=== PATIENT | male | born 1940 | race Hispanic/Latino ===

== ENCOUNTER 2018-03-22 13:30 | Inpatient (IN) | payer MEDICARE ==
[~2018-03-22] VITALS: Ht 174 cm; Wt 75.8 kg
[2018-03-22 11:30] VITALS: BP 141/70
[2018-03-22 11:35] LABS: APPEARANCE,URINE Clear (CLEAR); BILIRUBIN,URINE Negative (NEGATIVE); COLOR,URINE Yellow (YELLOW); GLUCOSE, URINE (UA) Negative (NEGATIVE); KETONES,URINE Negative (NEGATIVE); LEUKOCYTE ESTERASE ,URINE Negative (NEGATIVE); NITRATE,URINE Negative (NEGATIVE); OCCULT BLOOD,URINE Trace (NEGATIVE); PH,URINE 5.5 (5.0-8.0); PROTEIN,URINE Negative (NEGATIVE)
[2018-03-22 11:39] LABS: PARTIAL THROMBOPLASTIN TIME 28.9 SEC (26.3-35.5); PROTHROMBIN TIME 10.5 SEC (9.6-11.6)
[2018-03-22 11:51] LABS: BACTERIA,URINE Rare /HPF (None Seen); RBC,URINE 0-1 /HPF (0-1); SQUAMOUS EPITHELIAL CELL,UR Rare /HPF (0-2); WBC,URINE None Seen /HPF (0-1)
[~2018-03-22 13:30] MED LIST: AMLO10TA7 PO; ASPI-1181 PO; METO100T14 PO; SIMV20TA6 PO
[2018-03-24] VITALS (21 sets, daily range): BP systolic 118–145; BP diastolic 58–82
[2018-03-24] MEDS ORDERED: LACTATED RINGERS 1000ML 1,000 ML IV ONE (07:49)
[2018-03-24] MEDS: CEFAZOLIN SODIUM 1 GM VIAL ONE ×2 (08:03→10:34)
--- NOTE | 2018-03-24 08:06 | NUR ---
VALUABLES: CLOTHING, MEDICATIONS, UPPER / LOWER COMPLETE DENTURES AND WALLET GIVEN TO .
[2018-03-24] MEDS ORDERED: CEFAZOLIN SODIUM 1 GM VIAL ONE (08:33)
[2018-03-24] MEDS ORDERED: BUPIVACAINE/PF 0.25% 50ML VIAL IJ ONE (08:33)
[2018-03-24] MEDS ORDERED: TRANEXAMIC ACID 1000MG/10ML IV ONE ×2 (08:33→13:28)
[2018-03-24] MEDS ORDERED: ACETAMINOPHEN EXTRA STRENGTH 500 MG TABLET ONE (08:43)
[2018-03-24] MEDS ORDERED: OXYCODONE HCL 10 MG TAB.SR.12H PO ONE (08:43)
[2018-03-24] MEDS ORDERED: LIDOCAINE PF 2% 5ML ABBOJECT ONE ×2 (10:04→12:26)
[2018-03-24] MEDS ORDERED: ONDANSETRON HCL 4 MG/2 ML VIAL ONE (10:05)
[2018-03-24] MEDS ORDERED: ROCURONIUM 10MG/1ML SYR 10 MG/ML ML ONE (10:05)
[2018-03-24] MEDS ORDERED: PROPOFOL 10 MG/ML 20ML VIAL IV ONE (10:05)
[2018-03-24] MEDS ORDERED: FENTANYL CITRATE PF 50 MCG/1 ML 2ML VIAL ONE (10:05)
[2018-03-24] MEDS ORDERED: DEXAMETHASONE SOD PHOSPHATE 10MG/ML 1ML VIAL ONE (10:11)
[2018-03-24] MEDS ORDERED: ROPIVACAINE 0.5% 5MG/ML 30ML IJ ONE (10:11)
[2018-03-24] MEDS ORDERED: BUPIVACAINE/EPI/PF 0.25% 50 ML VIAL ONE (10:11)
[2018-03-24] MEDS ORDERED: EPHEDRINE SULFATE 50 MG/ML AMPULE ONE (10:57)
[2018-03-24] MEDS ORDERED: CEFAZOLIN SODIUM 1 GM VIAL IRRIG ONE (11:11)
[2018-03-24] MEDS ORDERED: FERROUS FUMARATE 324 MG TABLET PO PRN (12:15)
[2018-03-24] MEDS ORDERED: POTASSIUM CHLORIDE 10% ELIXIR 20 MEQ/15 ML UDCUP PO PRN (12:15)
[2018-03-24] MEDS ORDERED: POTASSIUM CHLORIDE 20MEQ/100ML 100 ML IV PRN (12:15)
[2018-03-24] MEDS ORDERED: TEMAZEPAM 15 MG CAPSULE PO PRN (12:15)
[2018-03-24] MEDS ORDERED: TRAMADOL HCL 50 MG TABLET PO PRN (12:15)
[2018-03-24] MEDS ORDERED: DiphenhydrAMINE HCL 50 MG/ML VIAL IVP PRN (12:15)
[2018-03-24] MEDS: ACETAMINOPHEN EXTRA STRENGTH 500 MG TABLET PO SCH ×2 (12:15→21:00)
[2018-03-24] MEDS ORDERED: ONDANSETRON HCL 4 MG/2 ML VIAL IVP PRN (12:15)
[2018-03-24] MEDS ORDERED: LIDOCAINE HCL-MPF 1% 2ML VIAL IVP PRN (12:15)
[2018-03-24] MEDS ORDERED: POTASSIUM CHLORIDE 20 MEQ ERTAB PO PRN (12:15)
--- NOTE | 2018-03-24 14:07 | NUR ---
POST SURGERY PATIENT RECEIVED FROM PACU VIA HOSPITAL BED IN STABLE CONDITION. HE IS AWAKE, ALERT AND ORIENTED X3. DENIES PAIN AT THIS TIME. JOSSUE DRESSING TO LEFT KNEE WITH GREEN LIGHT FLASHING. ORIENTED TO ROOM AND USE OF CALL LIGHT. FAMILY IS DOWNSTAIRS IN THE LOBBY WAITING TO SPEAK TO THE SURGEON. POST OP VITAL SIGNS INITIATED. BED IS IN LOWEST POSITION AND LOCKED WITH PERSONAL BELONGINGS WITHIN REACH. WILL CONTINUE TO MONITOR.
[2018-03-24] MEDS: SODIUM CHLORIDE 0.9% 1000ML 1,000 ML IV SCH ×2 (14:24→22:07)
[2018-03-24] MEDS: CEFAZOLIN SODIUM 1 GM VIAL IVP SCH (16:50)
[2018-03-24] MEDS: OXYCODONE HCL 5 MG TAB PO PRN (20:58)
[2018-03-24] MEDS: FAMOTIDINE 20MG TAB 20 MG TAB PO SCH (21:00)
[2018-03-24] MEDS: ASPIRIN 325 MG TABLET PO SCH (21:00)
[2018-03-24] MEDS: SIMVASTATIN 20 MG TABLET PO SCH (21:01)
[2018-03-24] MEDS: PREGABALIN 25 MG CAP PO SCH (21:01)
[2018-03-24] MEDS: METOPROLOL TARTRATE 50 MG TAB PO SCH (21:01)
[2018-03-25 00:04] VITALS: BP 133/65
[2018-03-25] MEDS: CEFAZOLIN SODIUM 1 GM VIAL IVP SCH (00:59)
[2018-03-25] MEDS: OXYCODONE HCL 5 MG TAB PO PRN ×3 (04:05→19:35)
[2018-03-25] MEDS: ACETAMINOPHEN EXTRA STRENGTH 500 MG TABLET PO SCH ×3 (04:05→19:36)
[2018-03-25 04:48] LABS: HEMATOCRIT 33.3 % (42-54); MEAN CORPUSCULAR HEMOGLOBIN 29.8 pg (27.0-33.0); MEAN CORPUSCULAR HGB CONC 34.8 g/dL (32.0-36.0); MEAN CORPUSCULAR VOLUME 85.6 fL (79-99); PLATELET COUNT (AUTO) 203 K/uL (130-400); RED BLOOD CELL COUNT(AUTO) 3.89 MIL/uL (4.50-6.20); RED CELL DISTRIBUTION WIDTH 15.4 % (11.0-15.5); WHITE BLOOD COUNT (AUTO) 10.9 K/uL (4.8-10.8)
[2018-03-25 04:52] VITALS: BP 149/86
[2018-03-25 04:55] LABS: CREATININE 1.1 mg/dL (0.5-1.5); POTASSIUM 4.5 mmol/L (3.5-5.1)
[2018-03-25 08:11] VITALS: BP 144/72
[2018-03-25] MEDS: AMLODIPINE BESYLATE 5 MG TAB PO SCH (08:28)
[2018-03-25] MEDS: FAMOTIDINE 20MG TAB 20 MG TAB PO SCH ×2 (08:28→19:35)
[2018-03-25] MEDS: ASPIRIN 325 MG TABLET PO SCH ×2 (08:28→19:36)
[2018-03-25] MEDS: METOPROLOL TARTRATE 50 MG TAB PO SCH ×2 (08:29→19:35)
[2018-03-25] MEDS: PREGABALIN 25 MG CAP PO SCH ×2 (08:29→19:35)
[2018-03-25] MEDS: TAMSULOSIN HCL 0.4 MG CAP.ER.24H PO SCH (08:29)
[2018-03-25] MEDS: POLYETHYLENE GLYCOL 3350 17 GM POWD.PACK PO SCH (08:29)
--- NOTE | 2018-03-25 09:14 | NUR ---
DC Plan Discussed dcp w/ patient. States plan is to go to [facility]. Patient signed RADHIKA and Choice Letter. States one of his daughters will drive patient to [facility]. Referral faxed at 0900 w/ fax confirmation received. Notified Bentley gentile/ [facility] of referral. MOT and Med Rec placed in chart. CM to continue to follow. CD Addendum: 03/25/18 at 0917 by MANNY BRAVO CM Amended: Links added.
[2018-03-25] MEDS: CALCIUM CARBONATE 500 MG TABLET PO PRN ×2 (11:05→19:35)
[2018-03-25 11:53] VITALS: BP 121/68
[2018-03-25 16:00] VITALS: BP 127/62
[2018-03-25] MEDS: SIMVASTATIN 20 MG TABLET PO SCH (19:36)
[2018-03-25 20:00] VITALS: BP 137/77
[2018-03-26] VITALS: BP 124/60
[2018-03-26] MEDS: ACETAMINOPHEN EXTRA STRENGTH 500 MG TABLET PO SCH (03:59)
[2018-03-26 04:14] VITALS: BP 152/72
[2018-03-26 08:00] VITALS: BP 154/70
[2018-03-26] MEDS: POLYETHYLENE GLYCOL 3350 17 GM POWD.PACK PO SCH (08:34)
[2018-03-26] MEDS: TAMSULOSIN HCL 0.4 MG CAP.ER.24H PO SCH (08:35)
[2018-03-26] MEDS: OXYCODONE HCL 5 MG TAB PO PRN (08:35)
[2018-03-26] MEDS: ASPIRIN 325 MG TABLET PO SCH (08:35)
[2018-03-26] MEDS: FAMOTIDINE 20MG TAB 20 MG TAB PO SCH (08:35)
[2018-03-26] MEDS: PREGABALIN 25 MG CAP PO SCH (08:35)
[2018-03-26] MEDS: METOPROLOL TARTRATE 50 MG TAB PO SCH (08:36)
[2018-03-26] MEDS: AMLODIPINE BESYLATE 5 MG TAB PO SCH (08:36)
--- NOTE | 2018-03-26 09:27 | NUR ---
As per admission database, pt refuses flu shot. Addendum: 03/26/18 at 3734 by JUDIE MOSES RN RN Amended: Links added.
[2018-03-26 11:00] VITALS: BP 105/50
[2018-03-26 16:00] VITALS: BP 131/67
--- NOTE | 2018-03-26 19:00 | NUR ---
PT D/C FULL EDUCATION GIVEN USING TEACH BACK METHOD SATISFACTORILY IV REMOVED, CATHETER INTACT NO SIGNS OF DISTRESS NOTED PT DENIES SOB OR CHEST PAIN FULL REPORT GIVEN TO JESSY FROM [facility]
[2018-03-27] MEDS ORDERED: BISACODYL 10 MG SUPP.RECT RC PRN (12:15)
== END 2018-03-26 18:57 | DRG 470 ==
LOC: EDSTATUS 13:30 → DAHIP 03-24 07:03 → 4AH 03-24 13:02
PROVIDERS: ADMIT Orthopaedic Surgery; ATTEND Orthopaedic Surgery
PROC: 3E0T3BZ Introduction of Anesthetic Agent into Peripheral Nerves and Plexi, Percutaneous Approach (ICD-10-PCS; 2018-03-24)
PROC: 0SRD0J9 Replacement of Left Knee Joint with Synthetic Substitute, Cemented, Open Approach (ICD-10-PCS; principal; 2018-03-24 09:59)
DX: M17.12 Unilateral primary osteoarthritis, left knee (principal); G89.29 Other chronic pain; I10 Essential (primary) hypertension; Z90.5 Acquired absence of kidney
CPT/HCPCS: 36415; 80048; 81001; 85027; 85610; 85730; 88305; 88311; A4218; G0378; J0690; J1100; J2001; J2405; J2704; J2795; J3010; J3490; J7030; J7120

== ENCOUNTER → 2023-08-18 | Outpatient (CLI) | payer OTHER ==
[~2023-08-18] VITALS: Ht 170.2 cm; Wt 78.1 kg
[~2023-08-18] MED LIST changes: +AMLO-258 PO; -AMLO10TA7 PO; -ASPI-1181 PO; +ASPI-1443 PO; +CETI10TA57 PO; +CLON0.1T PO; +HYDR12.54 PO; +MIRT7.5T11 PO; +QUET25TA36 PO; +SIMV-43 PO; -SIMV20TA6 PO; +TAMS-1 PO
[2023-08-18 09:24] LABS: BASOPHILS # (AUTO) 0.11 K/uL (0.00-0.20); BASOPHILS % (AUTO) 1.6 % (0.0-5.0); EOSINOPHILS # (AUTO) 0.64 K/uL (0.00-0.70); EOSINOPHILS % (AUTO) 9.1 % (0.0-8.0); HEMATOCRIT 38.6 % (42-54); IMMATURE GRANULOCYTE ABSOLUTE 0.06 K/uL (0-1); LYMPHOCYTES # (AUTO) 1.5 K/uL (1.0-4.8); LYMPHOCYTES % (AUTO) 20.7 % (21.0-51.0); MEAN CORPUSCULAR HEMOGLOBIN 30.5 pg (27.0-33.0); MEAN CORPUSCULAR HGB CONC 33.7 g/dL (32.0-36.0); MEAN CORPUSCULAR VOLUME 90.6 fL (79-99); MONOCYTES # (AUTO) 1.2 K/uL (0.1-1.0); NEUTROPHILS # (AUTO) 3.6 K/uL (1.8-7.7); NEUTROPHILS % (AUTO) 50.7 % (40.0-77.0); PLATELET COUNT (AUTO) 193 K/uL (130-400); RED BLOOD CELL COUNT(AUTO) 4.26 MIL/uL (4.50-6.20); RED CELL DISTRIBUTION WIDTH 13.6 % (11.0-15.5)
[2023-08-18 09:33] LABS: CREATININE 1.4 mg/dL (0.5-1.3); POTASSIUM 4.4 mmol/L (3.5-5.1)
[2023-08-18 09:34] LABS: INR <= 0.93 (0.85-1.15); PROTHROMBIN TIME 10.9 SEC (9.6-11.6)
[2023-08-18 09:35] LABS: PARTIAL THROMBOPLASTIN TIME 28.9 SEC (26.3-35.5)
[2023-08-18 09:38] VITALS: BP 146/67; PULSE 66; RESP 16
[2023-08-18 09:51] LABS: APPEARANCE,URINE CLEAR (CLEAR); BILIRUBIN,URINE NEGATIVE (NEGATIVE); COLOR,URINE LIGHT-YELLOW (YELLOW); GLUCOSE, URINE (UA) NEGATIVE (NEGATIVE); KETONES,URINE NEGATIVE (NEGATIVE); LEUKOCYTE ESTERASE ,URINE NEGATIVE Leu/uL (NEGATIVE); NITRATE,URINE NEGATIVE (NEGATIVE); OCCULT BLOOD,URINE SMALL (NEGATIVE); PROTEIN,URINE NEGATIVE (NEGATIVE); UROBILINOGEN,URINE 0.2 mg/dL (0.2-1.0)
[2023-08-18 09:51] LABS: B-TYPE NATRIURETIC PEPTIDE 73 pg/mL (0-100)
[2023-08-18 09:52] LABS: ADD UA MICROSCOPIC YES
[2023-08-18 10:05] LABS: SQUAMOUS EPITHELIAL CELL,UR RARE /HPF (0-2)
== END | disposition home or self-care (01) ==
LOC: DAH 08:43 → EDSTATUS 15:00 → DAH 08-20 07:39
PROVIDERS: ATTEND Internal Medicine Cardiovascular Disease
DX: Z01.818 Encounter for other preprocedural examination (principal); R94.39 Abnormal result of other cardiovascular function study; I11.0 Hypertensive heart disease with heart failure; I50.32 Chronic diastolic (congestive) heart failure
CPT/HCPCS: 36415; 71045; 80048; 81001; 83880; 85025; 85610; 85730; 93005

== ENCOUNTER 2023-09-18 05:52 | Day surgery (SDC) | payer OTHER ==
[2023-09-16 11:27] LABS: BASOPHILS # (AUTO) 0.08 K/uL (0.00-0.20); BASOPHILS % (AUTO) 1.1 % (0.0-5.0); EOSINOPHILS # (AUTO) 0.44 K/uL (0.00-0.70); HEMATOCRIT 38.2 % (42-54); IMMATURE GRANULOCYTE ABSOLUTE 0.08 K/uL (0-1); LYMPHOCYTES % (AUTO) 27.4 % (21.0-51.0); MEAN CORPUSCULAR HEMOGLOBIN 30.6 pg (27.0-33.0); MEAN CORPUSCULAR HGB CONC 35.1 g/dL (32.0-36.0); MEAN CORPUSCULAR VOLUME 87.2 fL (79-99); MONOCYTES # (AUTO) 0.9 K/uL (0.1-1.0); MONOCYTES % (AUTO) 11.8 % (3.0-13.0); NEUTROPHILS # (AUTO) 3.9 K/uL (1.8-7.7); NEUTROPHILS % (AUTO) 52.6 % (40.0-77.0); PLATELET COUNT (AUTO) 229 K/uL (130-400); RED BLOOD CELL COUNT(AUTO) 4.38 MIL/uL (4.50-6.20); RED CELL DISTRIBUTION WIDTH 13.6 % (11.0-15.5); WHITE BLOOD COUNT (AUTO) 7.4 K/uL (4.8-10.8)
[2023-09-16 11:38] LABS: CREATININE 1.4 mg/dL (0.5-1.3); POTASSIUM 4.2 mmol/L (3.5-5.1)
[2023-09-16 11:51] VITALS: BP 126/67; PULSE 72; RESP 19
[2023-09-16 11:51] LABS: APPEARANCE,URINE CLEAR (CLEAR); BILIRUBIN,URINE NEGATIVE (NEGATIVE); COLOR,URINE YELLOW (YELLOW); GLUCOSE, URINE (UA) NEGATIVE (NEGATIVE); KETONES,URINE NEGATIVE (NEGATIVE); LEUKOCYTE ESTERASE ,URINE NEGATIVE Leu/uL (NEGATIVE); NITRATE,URINE NEGATIVE (NEGATIVE); OCCULT BLOOD,URINE NEGATIVE (NEGATIVE); PH,URINE 6.5 (5.0-8.0); PROTEIN,URINE NEGATIVE (NEGATIVE); UROBILINOGEN,URINE 0.2 mg/dL (0.2-1.0)
[2023-09-16 11:54] LABS: B-TYPE NATRIURETIC PEPTIDE 46 pg/mL (0-100)
[2023-09-16 11:56] LABS: ADD UA MICROSCOPIC NO
[2023-09-16 12:07] LABS: INR 1.01 (0.85-1.15); PARTIAL THROMBOPLASTIN TIME 26.5 SEC (26.3-35.5); PROTHROMBIN TIME 10.7 SEC (9.6-11.6)
[~2023-09-18] VITALS: Ht 170.2 cm; Wt 77.8 kg
[2023-09-18] VITALS (10 sets, daily range): BP systolic 93–142; BP diastolic 52–74; PULSE 55–74; RESP 9–20
[~2023-09-18 05:52] MED LIST changes: -CETI10TA57 PO; +MONT-39 PO; -TAMS-1 PO
[2023-09-18] MEDS: 0.9%NACL 1000ML 1,000 ML IV ONE (06:38)
[2023-09-18] MEDS ORDERED: FENTANYL CITRATE PF 50 MCG/1 ML 2ML VIAL ONE (07:31)
[2023-09-18] MEDS ORDERED: MIDAZOLAM HCL 1 MG/ML 2ML VIAL ONE (07:32)
[2023-09-18] MEDS ORDERED: IOHEXOL 350 MG/ML 100ML INFUS..BTL IV ONE (07:38)
[2023-09-18] MEDS ORDERED: NICARDIPINE 25MG INJ IV ONE (07:47)
[2023-09-18] MEDS ORDERED: IOHEXOL-350 50ML VIAL IV ONE (07:57)
[2023-09-18] MEDS: 0.9% NACL 500ML IV.SOLN 500 ML IV SCH (08:15)
== END 2023-09-18 11:35 | disposition home or self-care (01) ==
LOC: DAH 05:52 → EDSTATUS 12:00
PROVIDERS: ATTEND Internal Medicine Cardiovascular Disease
DX: R94.39 Abnormal result of other cardiovascular function study (principal); I25.119 Atherosclerotic heart disease of native coronary artery with unspecified angina pectoris; I11.0 Hypertensive heart disease with heart failure; I50.9 Heart failure, unspecified; E78.00 Pure hypercholesterolemia, unspecified; M19.90 Unspecified osteoarthritis, unspecified site; Z90.5 Acquired absence of kidney; Z85.528 Personal history of other malignant neoplasm of kidney; Z96.652 Presence of left artificial knee joint; Z79.899 Other long term (current) drug therapy
CPT/HCPCS: 80048; 83880; 85025; 85610; 85730; 81003; 36415; 71045; 93005; 93458; C1894 ×3; C1760; J3010; J3490 ×4; J7030; J1644 ×2; J2250; Q9967 ×2; A4215; A4222; A4221; A4663; A4216; A4606; Q9965 ×2; A4223 ×3; 96360; 96361; 99156; 99157

== ENCOUNTER → 2023-09-22 | Outpatient (CLI) | payer OTHER | END | disposition home or self-care (01) | LOC: RAH 12:07 | PROVIDERS: ATTEND Internal Medicine | DX: R13.10 Dysphagia, unspecified (principal); R63.30 Feeding difficulties, unspecified | CPT/HCPCS: 74230; 92611 ==